=== PATIENT | male | born 1945 | race Caucasian/White ===

== ENCOUNTER 2019-11-18 07:28 | Day surgery (SDC) | payer MEDICARE, OTHER ==
[~2019-11-18] VITALS: Ht 182.9 cm; Wt 91.9 kg
[~2019-11-18 07:28] MED LIST: ALLO300; ASPI81CH PO; BROMELAINS500 MG PO; Cialis20 MG PO; Co Q-1010 MG PO; FISH1000 PO; MULVITMIND PO; Norvasc2.5 MG PO; Red Yeast Rice600 MG PO; Super B With V1 EACH PO; TOCO400 PO; TRAM50
--- NOTE | 2019-11-18 14:39 | NUR ---
11/18/19 1439 Luz Marina Becerra [id number] RECIEVED PATIENT FROM OR. IV LR HAS 250 REMAINING SITE DC'D. TOLERATED WELL. VSS. UP TO CHAIR AND FLUIDS OFFERED. SHIELD IN PLACE. NO DRAINAGE.
== END 2019-11-18 09:54 | disposition home or self-care (01) ==
LOC: ORSCSDS 07:28
PROVIDERS: Ophthalmology
PROC: 08RJ3JZ Replacement of Right Lens with Synthetic Substitute, Percutaneous Approach (ICD-10-PCS; principal; 2019-11-18 09:00)
DX: H25.11 Age-related nuclear cataract, right eye (principal); I10 Essential (primary) hypertension; J44.9 Chronic obstructive pulmonary disease, unspecified; Z79.899 Other long term (current) drug therapy
CPT/HCPCS: J2001; J2250; J3010; J3301; J7040; V2632